=== PATIENT | female | born 1950 | race Caucasian/White ===

== ENCOUNTER 2020-11-16 11:38 | Emergency (ER) | payer OTHER, SELFPAY ==
[2020-11-16 12:12] VITALS: BP 139/69; PULSE 101; RESP 20; TEMP 37.4; O2SAT 98; BMI 27.1
--- NOTE | 2020-11-16 14:24 | CTR_ITS ---
PROCEDURE INFORMATION: Exam: CT Abdomen And Pelvis Without Contrast Exam date and time: 11/16/2020 3:02 PM Age: 70 years old Clinical indication: Abdominal pain; Left; Prior surgery; Surgery date: 6+ months; Surgery type: Prolapse; Patient HX: PT states known b stones mow w increasing L flank/groin pain; Additional info: Flank pain TECHNIQUE: Imaging protocol: Computed tomography of the abdomen and pelvis without contrast. Radiation optimization: All CT scans at this facility use at least one of these dose optimization techniques: automated exposure control; mA and/or kV adjustment per patient size (includes targeted exams where dose is matched to clinical indication); or iterative reconstruction. COMPARISON: No relevant prior studies available. RADIATION DOSE METRICS: Total DLP (mGy-cm): 909.69 FINDINGS: Lungs: There is subpleural atelectasis of the dependent portions of the lungs. Mediastinal space: A small hiatal hernia is present. Liver: There is a diffuse decrease in hepatic parenchymal density, consistent with fatty infiltration. Gallbladder and bile ducts: Normal. No calcified stones. No ductal dilation. Pancreas: Normal. No ductal dilation. Spleen: Normal. No splenomegaly. Adrenal glands: The adrenal glands are normal. Kidneys and ureters: There is severe left hydronephrosis and left perinephric fat stranding with a 7 mm calculus at the left ureteral vesical junction. The right kidney is normal. There is punctate left nephrolithiasis. Stomach and bowel: There is no evidence of intestinal perforation or obstruction. There is mildly excessive colonic stool content. Appendix: The appendix is not definitively identified. However, there is no CT evidence of a right lower quadrant inflammatory process. Intraperitoneal space: Unremarkable. No free air. No significant fluid collection. Vasculature: There are numerous benign phleboliths in the pelvis. The aorta demonstrates mild atherosclerotic calcification. Lymph nodes: Unremarkable.No enlarged lymph nodes. Urinary bladder: There is nonspecific bladder wall thickening. This may be related to incomplete distention. Reproductive: Unremarkable as visualized. Bones/joints: There is bilateral spondylolysis of L5 with grade 1 spondylolisthesis of L5 on S1. No central canal stenosis due to a large spinal canal but there is moderate bilateral foraminal narrowing at this level due to bony vertebral endplate and facet joint proliferative changes. No acute bony abnormality. 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 The right sacroiliac joint has an appropriate appearance. There is an incidental probable enchondroma in the right femoral head neck junction. Soft tissues: There is a fat-containing umbilical hernia. Other findings: There is mild levoscoliosis. CT/CT kidney stone [id number] IMPRESSION: 1. There is severe left hydronephrosis and left perinephric fat stranding with a 7 mm calculus at the left ureteral vesical junction. 2. There is bilateral spondylolysis of L5 with grade 1 spondylolisthesis of L5 on S1. No central canal stenosis due to a large spinal canal but there is moderate bilateral foraminal narrowing at this level due to bony vertebral endplate and facet joint proliferative changes. 3. There is unilateral left sacroiliitis with near complete ankylosis of the left sacroiliac joint. Radiation Dose CTDIVOL = (mGy): DLP = 909.69 (mGy-cm)
--- NOTE | 2020-11-16 14:24 | XRR_ITS ---
PROCEDURE INFORMATION: Exam: XR Chest Exam date and time: 11/16/2020 2:25 PM Age: 70 years old Clinical indication: Cough and dyspnea; Additional info: Dyspnea/cough TECHNIQUE: Imaging protocol: XR of the chest Views: 1 view. COMPARISON: No relevant prior studies available. FINDINGS: Lungs: The lungs are hyperinflated. There is left basilar atelectasis versus scarring. The right lung is clear. Pulmonary vascularity is within normal limits. No consolidation. Pleural spaces: Unremarkable. No pleural effusion. No pneumothorax. Heart/Mediastinum: Unremarkable. No cardiomegaly. Bones/joints: No acute abnormality. XR/XR chest 1V portable [id number] IMPRESSION: No acute findings.
--- NOTE | 2020-11-16 14:39 | ED_ITS ---
HPI - Female Genitourinary General: Chief complaint: Urogenital-Female Stated complaint: AB PAIN, POSS KIDNEY STONES, CHILLS Time Seen by Provider: 11/16/20 14:19 History of Present Illness: HPI Narrative: 70-year-old female with a history of renal stones presents with complaints of abdominal pain and flank pain. Patient states she was seen recently by her primary care doctor and told she had renal stones she is now complaining of pelvic and low back pain as well as some dysuria. She has a fever on arrival here no vomiting or diarrhea she is mildly tachycardic denies chest pain or shortness of breath. MD elicited complaint: dysuria and difficulty urinating Pertinent past history: other (Nephrolithiasis) Onset (ago): hour(s) Location of symptoms: suprapubic Severity: moderate Quality of pain: cramping Consistency: intermittent Vaginal discharge: none Vaginal bleeding: none Urinary symptoms: Difficulty Urinating and Dysuria Exacerbating factors: none Relieving factors: none Associated symptoms: Reports fevers/chills and nausea; Deny abdominal pain, short of breath, headache(s), rash, seizures, syncope, vaginal bleeding, vaginal discharge or weakness Treatment prior to arrival: none Review of Systems Const: Denies: fever(s), chills, body aches, change in appetite, fatigue or malaise ENMT: Denies: throat pain, ear or mastoid pain, nasal discharge or nasal congestion Card: Denies: syncope Resp: Denies: dyspnea, productive cough or non-productive cough GI: Reports: nausea; Denies: abdominal pain : Denies: vaginal discharge Skin/Breast: Denies: rash or pruritus Neuro: Denies: headache(s) Physical Exam Const: COMMON NORMALS: no acute distress GENERAL APPEARANCE: cooperative and comfortable ORIENTATION/CONSCIOUSNESS: Yes awake, Yes oriented to person, Yes oriented to place and Yes oriented to time HENMT: COMMON NORMALS: normocephalic, atraumatic and hearing grossly normal bilaterally HEAD & SCALP: normocephalic and atraumatic Neck/C-Spine: COMMON NORMALS: no JVD Resp: COMMON NORMALS: normal respiratory effort, No retractions, No use of accessory muscles and clear to auscultation bilaterally AUSCULTATION: clear to auscultation bilaterally Cardio: COMMON NORMALS: no JVD, regular rate, regular rhythm and No murmurs present (Cardio) RATE: regular rate RHYTHM: regular rhythm GI: COMMON NORMALS: Soft to palpation and No hepatosplenomegaly present AUSCULTATION: Yes normoactive bowel sounds PALPATION: Yes Soft to palpation, No Tenderness to palpation present (GI), No Guarding due to palpation present (GI) and Yes No hepatosplenomegaly present : SPECULUM EXAM - VAGINA: No vaginal bleeding OB/EXTERNAL & SPECULUM: No vaginal bleeding Extremity: COMMON NORMALS: normal to inspection, capillary refill normal, no clubbing, cyanosis or edema, no calf tenderness and no pedal edema Neuro: SENSORIUM/ORIENTATION: Yes oriented to person, Yes oriented to place and Yes oriented to time Skin: COMMON NORMALS: no rashes or lesions noted GENERAL SKIN EXAM: no rashes or lesions noted Course Vital Signs: Vital signs: Vital Signs Temperature 100.3 F H 11/16/20 18:37 Pulse Rate 105 H 11/16/20 18:37 Respiratory Rate 20 H 11/16/20 18:37 Blood Pressure 139/100 11/16/20 18:37 Pulse Oximetry 98 11/16/20 18:37 MDM - Female MDM Narrative: Medical decision making narrative: Patient has obstructive pyelonephritis has been cultured started on Rocephin will transfer to [facility] in [place] we do not have urology services available here this weekend. Patient accepted at [facility] will transfer. Lab Data: Labs: Lab Results 11/16/20 11/16/20 11/16/20 Range/Units 13:11 14:30 14:30 WBC 8.9 (4.0-10.0) 10^3/ uL RBC 4.62 (4.1-5.3) 10^6/u L Hgb 13.7 (11.5-15.3) g/dL Hct 42.7 (37.0-47.0) % MCV 92.4 (81-99) fL MCH 29.7 (28.0-34.0) pg MCHC 32.1 (30.0-36.0) g/dL RDW 13.4 (12.1-15.1) % Plt Count 233 (130-400) 10^3/c mm MPV 10.6 H (7.4-10.4) fL Neut % (Auto) 86.3 % Lymph % (Auto) 7.1 % Shackelford % (Auto) 6.0 % Eos % (Auto) 0.1 % Baso % (Auto) 0.3 % Neut # (Auto) 7.65 (1.8-7.7) 10^3/u L Lymph # (Auto) 0.6 L (0.8-4.8) 10^3/u L Shackelford # (Auto) 0.5 (0.2-0.9) 10^3/u L Eos # (Auto) 0.0 (0.0-0.8) 10^3/u L Baso # (Auto) 0.0 (0.0-0.1) 10^3/u L Nucleated RBC % (a uto) 0 % Nucleated RBCs # 0.0 /100WBC Sodium (136-145) mmol/L Potassium (3.5-5.1) mmol/L Chloride (98-107) mmol/L Carbon Dioxide (22-29) mmol/L Anion Gap (5-19) BUN (8-23) mg/dL Creatinine (0.5-0.9) mg/dL GFR Calculation (90-130) mL/min Glucose (65-115) mg/dL Calculated Osmolal ity (285-295) mOsm/k g Lactic Acid 1.8 (0.5-2.2) mmol/L Calcium (8.5-10.5) mg/dL Total Bilirubin (0.15-1.2) mg/dL AST (0-32) U/L ALT (0-33) U/L Alkaline Phosphata se (35-105) IU/L Total Protein (6.6-8.7) g/dL Albumin (3.5-5.2) g/dL Globulin (1.3-4.6) g/dL Urine Color Yellow (Yellow) Urine Appearance Cloudy (CLEAR) Urine pH 6 (5-7) Ur Specific Gravit y 1.015 (1.005-1.030) Urine Protein 1+ H (Negative) Urine Glucose (UA) Norm (Normal) Urine Ketones Negative (Negative) Urine Blood 2+ H (Negative) Urine Nitrate Negative (Negative) Urine Bilirubin Neg (Negative) Urine Urobilinogen Norm (Negative) mg/dL Ur Leukocyte Tamia ase 2+ H (Negative) Urine RBC 15-25 H (0-2) /hpf Urine WBC 40-55 H (0-5) /hpf Ur Squamous Epith Cells 0-4 H (0-5) /hpf Amorphous Sediment Not Reportable Urine Bacteria 4+ H (NONE) /hpf Urine Mucus 1+ /hpf 11/16/20 Range/Units 14:30 WBC (4.0-10.0) 10^3/ uL RBC (4.1-5.3) 10^6/u L Hgb (11.5-15.3) g/dL Hct (37.0-47.0) % MCV (81-99) fL MCH (28.0-34.0) pg MCHC (30.0-36.0) g/dL RDW (12.1-15.1) % Plt Count (130-400) 10^3/c mm MPV (7.4-10.4) fL Neut % (Auto) % Lymph % (Auto) % Shackelford % (Auto) % Eos % (Auto) % Baso % (Auto) % Neut # (Auto) (1.8-7.7) 10^3/u L Lymph # (Auto) (0.8-4.8) 10^3/u L Shackelford # (Auto) (0.2-0.9) 10^3/u L Eos # (Auto) (0.0-0.8) 10^3/u L Baso # (Auto) (0.0-0.1) 10^3/u L Nucleated RBC % (a uto) % Nucleated RBCs # /100WBC Sodium 138 (136-145) mmol/L Potassium 4.3 (3.5-5.1) mmol/L Chloride 101 (98-107) mmol/L Carbon Dioxide 23 (22-29) mmol/L Anion Gap 18.3 (5-19) BUN 13 (8-23) mg/dL Creatinine 0.7 (0.5-0.9) mg/dL GFR Calculation 83.2 L (90-130) mL/min Glucose 127 H (65-115) mg/dL Calculated Osmolal ity 288 (285-295) mOsm/k g Lactic Acid (0.5-2.2) mmol/L Calcium 9.6 (8.5-10.5) mg/dL Total Bilirubin 0.8 (0.15-1.2) mg/dL AST 17 (0-32) U/L ALT 20 (0-33) U/L Alkaline Phosphata se 111 H (35-105) IU/L Total Protein 7.7 (6.6-8.7) g/dL Albumin 4.4 (3.5-5.2) g/dL Globulin 3.3 (1.3-4.6) g/dL Urine Color (Yellow) Urine Appearance (CLEAR) Urine pH (5-7) Ur Specific Gravit y (1.005-1.030) Urine Protein (Negative) Urine Glucose (UA) (Normal) Urine Ketones (Negative) Urine Blood (Negative) Urine Nitrate (Negative) Urine Bilirubin (Negative) Urine Urobilinogen (Negative) mg/dL Ur Leukocyte Tamia ase (Negative) Urine RBC (0-2) /hpf Urine WBC (0-5) /hpf Ur Squamous Epith Cells (0-5) /hpf Amorphous Sediment Urine Bacteria (NONE) /hpf Urine Mucus /hpf Discharge Plan Discharge Patient Disposition: Xfer Short-Term Hosp Clinical Impression: Obstructive pyelonephritis, Nephrolithiasis Condition: Stable Referrals: Eedr Lees [Primary Care Provider] - Coding Level of Care Code ED Demand Generation Manager for Chg Fwd Exam Comprehensive
[2020-11-16 14:52] LABS: Basophils % 0.3 %; Eosinophils % 0.1 %; Hematocrit 42.7 % (37.0-47.0); Hemoglobin 13.7 g/dL (11.5-15.3); Lymphocytes # 0.6 10^3/uL (0.8-4.8); Lymphocytes % 7.1 %; Mean Corpuscular HGB Conc 32.1 g/dL (30.0-36.0); Mean Corpuscular Hemoglobin 29.7 pg (28.0-34.0); Mean Corpuscular Volume 92.4 fL (81-99); Mean Platelet Volume 10.6 fL (7.4-10.4); Monocytes # 0.5 10^3/uL (0.2-0.9); Neutrophils # 7.65 10^3/uL (1.8-7.7); Neutrophils % 86.3 %; Nucleated Red Blood Cells % 0 %; Platelet Count 233 10^3/cmm (130-400); Red Blood Count 4.62 10^6/uL (4.1-5.3); Red Cell Distribution Width 13.4 % (12.1-15.1); White Blood Count 8.9 10^3/uL (4.0-10.0)
[2020-11-16 15:13] LABS: Alanine Aminotransferase 20 U/L (0-33); Albumin Level 4.4 g/dL (3.5-5.2); Alkaline Phosphatase 111 IU/L (35-105); Anion Gap 18.3 (5-19); Aspartate Amino Transferase 17 U/L (0-32); Blood Urea Nitrogen 13 mg/dL (8-23); Calcium 9.6 mg/dL (8.5-10.5); Carbon Dioxide 23 mmol/L (22-29); Chloride 101 mmol/L (98-107); Creatinine Clr Calc Pharmacy 65.3302; Globulin 3.3 g/dL (1.3-4.6); Glomerular Filtration Rate 83.2 mL/min (90-130); Glucose 127 mg/dL (65-115); Lactic Sepsis W/Reflex 1.8 mmol/L (0.5-2.2); Osmolality Calculated 288 mOsm/kg (285-295); Potassium 4.3 mmol/L (3.5-5.1); Sodium 138 mmol/L (136-145); Total Bilirubin 0.8 mg/dL (0.15-1.2); Total Protein 7.7 g/dL (6.6-8.7)
[2020-11-16 15:58] LABS: Bilirubin Urine Neg (Negative); Blood Urine 2+ (Negative); Glucose Urine UA Norm (Normal); Ketones Urine Negative (Negative); Leukocyte Esterase Urine 2+ (Negative); Nitrate Urine Negative (Negative); Protein Urine 1+ (Negative); Specific Gravity, Urine 1.015 (1.005-1.030); Urine Appearance Cloudy (CLEAR); Urine Color Yellow (Yellow); Urobilinogen Urine Norm (Negative); pH Urine 6 (5-7)
[2020-11-16 16:00] LABS: Add Urine Culture? Yes; Bacteria Urine 4+ /hpf; Mucus Urine 1+ /hpf; RBC Urine 15-25 /hpf (0-2); Squamous Epithelial Cell Urine 0-4 /hpf (0-5); WBC Urine 40-55 /hpf (0-5)
[2020-11-16 16:09] VITALS: BP 135/80; PULSE 113; RESP 20; O2SAT 92
[2020-11-16] MEDS: cefTRIAXone 2,000 MG in sodium chloride 0.9% (plus) 50 ML 100 MG IV (16:24)
[2020-11-16 16:26] VITALS: RESP 18
[2020-11-16] MEDS: ondansetron 2 mg/ML SDV 2 mL 4 MG IVP (16:26)
[2020-11-16] MEDS: morphine 4 mg/mL SDV 1 mL 6 MG IVP ×2 (16:26→18:07)
[2020-11-16 18:07] VITALS: RESP 20
[2020-11-16 18:37] VITALS: BP 139/100; PULSE 105; RESP 20; TEMP 37.9; O2SAT 98
== END 2020-11-16 19:19 | disposition short-term general hospital (02) ==
PROVIDERS: Physician Assistant; Emergency Provider Family Medicine; PCP Physician Assistant Medical
DX: N20.0 Calculus of kidney (principal)
CPT/HCPCS: 36415; 71045; 74176; 80053; 81001; 83605; 85025; 87040; 87077; 87086; 87186; 96365; 96375; 96376; 99285; J0696; J2270; J2405

== ENCOUNTER → 2021-11-24 14:19 | Outpatient (BNVA) | payer OTHER, SELFPAY | PROVIDERS: PCP Physician Assistant Medical; Referring Provider Family Medicine; Visit Provider Podiatrist Foot & Ankle Surgery | DX: M79.671 Pain in right foot (principal); M79.672 Pain in left foot; M21.611 Bunion of right foot; M21.612 Bunion of left foot; M20.41 Other hammer toe(s) (acquired), right foot; M20.42 Other hammer toe(s) (acquired), left foot | CPT/HCPCS: 73630 ==

== ENCOUNTER 2022-03-20 10:05 | Outpatient (CLI) | payer MEDICARE, SELFPAY ==
--- NOTE | 2022-03-20 10:14 | MM_ITS ---
WS: [id number] SCREENING DIGITAL BREAST TOMOSYNTHESIS MAMMOGRAM WITH CAD HISTORY: SCREENING COMPARISON: 04/16/2020 Bilateral CC and MLO with tomosynthesis views submitted. Synthetic mammography reviewed. Computer aid ed detection analyzed. Breast composition: There are scattered areas of fibroglandular density. No suspicious masses, microc alcifications or architectural distortion. Parenchymal pattern is similar to the prior study from 03/24. No suspicious mass or calcification. MM/[place] [id number] IMPRESSION: BI-RADS: 2-Benign FOLLOW UP: 1 Year Follow-up
== END 2022-03-20 10:06 | disposition home or self-care (01) ==
LOC: RAD 10:06
PROVIDERS: PCP Family Medicine; Visit Provider Nurse Practitioner Family
DX: Z12.31 Encounter for screening mammogram for malignant neoplasm of breast (principal)
CPT/HCPCS: 77063; 77067

== ENCOUNTER → 2022-04-06 10:35 | Outpatient (BNVA) | payer MEDICARE, SELFPAY | PROVIDERS: PCP Family Medicine; Visit Provider Podiatrist Foot & Ankle Surgery | DX: M21.611 Bunion of right foot (principal); M21.612 Bunion of left foot; M20.41 Other hammer toe(s) (acquired), right foot; M20.42 Other hammer toe(s) (acquired), left foot | CPT/HCPCS: 99214 ==

== ENCOUNTER 2022-04-10 05:47 | Day surgery (SDC) | payer MEDICARE, SELFPAY ==
[2022-04-09 09:35] VITALS: BMI 26.6
[2022-04-10] VITALS (9 sets, daily range): BP systolic 117–155; BP diastolic 65–83; PULSE 68–80; RESP 12–18; TEMP 36.1–36.6; O2SAT 93–98
--- NOTE | 2022-04-10 06:07 | W.PM.OPSUD ---
Surgery/Procedure H&P Update DATE OF PROCEDURE: April 10, 2022 DATE H&P PERFORMED: 04/06/22 CHANGES TO PREVIOUS DOCUMENTATION: None PREOP DIAGNOSIS: Left bunion PRIMARY INDICATION FOR PROCEDURE: Left bunion pain PLANNED PROCEDURE: Operation Date: 04/10/22 07:00 Proposed Procedures p Left Bunionectomy 57472,M21.612(Not Applicable) - Angel Mireles DPM
--- NOTE | 2022-04-10 06:08 | P.OP_ITS ---
Operative Report Date of procedure: April 10, 2022 Pre-op diagnosis: Bunion, left foot Post-op diagnosis: Same Procedure done: Bunionectomy with double osteotomy left foot. CPT code 77633 Implants: Cardwell 28 3 mm screw and 10 mm staple, 3-0 Vicryl, 4-0 Vicryl, 4-0 nylon Surgeon: Angel Mireles D.P.M. Mechanical Developer Prover: Leia Brand Estimated blood loss: 5 38 Complications: None Brief History: Patient examined and evaluated, findings and treatment options were discussed with patient at length.? She has a nontrack bound bunion deformity that is painful left greater than right would like to discuss surgical invention.? Has failed conservative measures consisting of taping, strapping, padding, wider shoes, active medications, stretching and anti-inflammatories.? Left foot but it continues to cause pain on a regular basis with everyday activities would like to have this scheduled for surgical intervention.? Recommended bunionectomy with distal osteotomy with long-arm Bandar.? Can be done outpatient under MAC anesthesia.? Risks include but are not limited to pain, bleeding, numbness, infection, hardware failure, delayed union, malunion, nonunion, failure to alleviate pain.? Chronic swelling, chronic numbness, paresthesias, surgical site dehiscence, hallux varus.? Under correction of deformity, overcorrection for me, altered mechanics and need for further surgical intervention.? Also risk for deep vein thrombosis, heart attack, stroke and . No guarantees written, expressed or implied. Patient wishes to proceed. Procedure: Attention was directed to the dorsal medial aspect of the left first metatarsal phalangeal joint where a linear longitudinal incision was made through skin with a #15 blade with dissection carried down through subcutaneous tissue to the layer joint capsule and periosteum utilizing a combination of blunt and sharp technique.? Care was taken to retract and preserve neurovascular and tendinous structures.? All bleeders were ligated and cauterized as necessary.? A linear capsulotomy was performed and the medial eminence of the first metatarsal head was transected with a sagittal saw and passed from operative field.? Next utilizing a sagittal saw a chevron osteotomy was performed apex oriented distally with the head of the first metatarsal left foot translated laterally into a more anatomically corrected position followed by fixation utilizing standard AO technique, osteotomy was fixated utilizing a Cardwell 28 cannulated screw 16 mm x 3 mm in diameter and partially threaded.? Medial shelf was transected, passed from operative field and all rough edges smoothed.? Attention was then directed to the medial aspect of the proximal phalanx where a Juan Pablo osteotomy was performed maintaining a lateral cortical hinge followed by fixation with a Cardwell 28 10mm x 10mm step-off nitinol staple with excellent bony apposition and compression noted without violating the first metatarsal phalangeal joint confirmed with direct visualization as well as intraoperative fluoroscopy in all 3 standard views.? Incision was then flushed with copious amounts of sterile skin solution.? Smooth range of motion of the first metatarsal plantar joint appreciated as well as reduction of the bunion deformity and a more rectus medial column was appreciated.? Capsule closed with 3-0 Vicryl, subcutaneous tissue with 4-0 Vicryl and skin with 4-0 nylon.? Exparel was infiltrated in a grid like fashion a total of 10 cc expanded with 10 cc of saline.? Dressings consisting of Adaptic, sterile 4 x 4's, Kerlix and Juventino wrap were applied and tourniquet was deflated.? Postop shoe and cam boot sent with the patient for protected weightbearing.? She was sent home with a cam boot with vital signs stable and vascular status intact.? Prescribed hydrocodone 5/325 mg to take every 4-6 hours as needed for pain.? Advised 81 mg aspirin once daily for the next 6 weeks to potentially reduce the risk of deep vein thrombosis.? Was given my cell phone number to contact with any postoperative questions or concerns.
--- NOTE | 2022-04-10 06:12 | XR_ITS ---
WS: [id number] Left foot, 3 views, 04/10/2022 Clinical Data: Postop bunionectomy Comparison: Bilateral feet, 11/24/2021. Findings: There is a distal first metatarsal osteotomy fixed with an orthopedic screw. There is an osteotomy of the base of the left first toe proximal phalanx with a medial plate and 2 screws reducing the site. XR/XR foot LT min 3V* [id number] Impression: Distal left first metatarsal osteotomy and left first toe osteotomy of the prox imal phalanx.
[2022-04-10] MEDS: gabapentin 300 mg Capsule PO (06:33)
[2022-04-10] MEDS: CELEcoxib 200 mg Capsule 400 MG PO (06:33)
[2022-04-10] MEDS: sodium chloride 0.9% 1,000 ML 30 ML IV (06:36)
[2022-04-10] MEDS: ceFAZolin 2,000 MG in sodium chloride 0.9% (plus) 50 ML 100 MG IV (07:00)
--- NOTE | 2022-04-10 07:23 | ANES.PREANE2 ---
Pre-Anesthetic Assessment Height/Weight: Height 1.63 m Weight 70.307 kg Temp Pulse Resp BP Pulse Ox O2 Del Method 97.8 F 71 18 155/83 98 04/10/22 06:17 04/10/22 06:17 04/10/22 06:17 04/10/22 06:17 04/10/22 06:17 04/10/22 06:17 Preop Diagnosis: Left bunion Operation Date: 04/10/22 07:00 Proposed Procedures p Left Bunionectomy 92680,M21.612(Not Applicable) - Angel Mireles DPM Familial anesthetic complications: None Was Beta Jessica taken within 24 hours: N/A Was Clonidine taken within 24 hours: N/A Last intake: Intake Last Liquid Date 04/09/22 Last Liquid Time 21:30 Last Solid Date 04/09/22 Last Solid Time 19:30 Social No alcohol and No tobacco Exam alert, oriented x 3, clear to auscultation bilaterally and regular rate & rhythm Airway Submandibular: within normal limits Cervical ROM: within normal limits Mallampati: Class II Dentition: full GI Gastroesophageal Reflux Disease Anesthetic Plan ASA status: 2 Anesthesia: MAC Medications/Allergies Home Medications Medication Instructions Recorded Confirmed Last Taken Type acetaminophen 500 mg tablet 500 - 1,000 mg PO PRN PRN Pain 11/16/20 04/10/22 04/09/22 History (Tylenol Extra Strength) calcium 1 - 2 tab PO DAILY 11/16/20 04/09/22 Unknown History cholecalciferol (vitamin D3) 125 125 mcg PO DIRECTED 11/16/20 04/10/22 04/09/22 History mcg (5,000 unit) tablet (Vitamin D3) estradiol 1 g vaginal .THREE TIMES A WEEK 11/16/20 04/09/22 Unknown History PRN dryness ibuprofen 200 mg tablet 200 mg PO PRN PRN Pain 11/16/20 04/10/22 04/09/22 History biotin 10,000 mcg capsule 10,000 mcg PO DAILY 04/09/22 04/10/22 04/09/22 History esomeprazole magnesium 20 mg 20 mg PO DAILY PRN Heartburn 04/09/22 04/10/22 04/09/22 History capsule,delayed release (Nexium) losartan 25 mg tablet 25 mg PO DAILY 04/09/22 04/10/22 04/09/22 History hydrocodone 10 mg-acetaminophen 1 tab PO Q6H 7 days #20 tabs 04/10/22 Unknown Rx 325 mg tablet Allergies Allergy/AdvReac Type Severity Reaction Status Date / Time No Known Allergies Allergy Verified 04/09/22 09:31 Current Medications Generic Name Dose Route Start Last Admin Trade Name Freq PRN Reason Stop Dose Admin Sodium Chloride 1,000 mls @ 30 mls/hr 04/10/22 06:00 04/10/22 06:36 Sodium Chloride 0.9% IV 04/11/22 05:59 30 mls/hr .Q24H KERRY Administration PFSH Anesthesia Social History Smoking and tobacco status: never smoked Second hand smoke exposure: No Smoking risk assessment/counseling performed?: No Alcohol intake: current Alcohol intake frequency: holidays/special occasions only Alcohol type: other Desire information about alcohol rehabilitation?: No Desire information about substance/drug rehabilitation?: No Counseling given: No Data Anesthesia Cardiac Studies: No Data to Display
--- NOTE | 2022-04-10 14:56 | ANE.PACU2 ---
Inpatient post-anesthesia follow up: Airway intact: Yes Vital signs: Temperature 97.4 F Pulse Rate 68 Respiratory Rate 18 Blood Pressure 141/73 Pulse Oximetry 97 Oxygen Delivery Me thod Room Air Oxygen Flow Rate Fraction of Inspir ed Oxygen Hydration adequate: Yes Nausea and vomiting: No Pain level: 2 Mental status: Baseline
== END 2022-04-10 09:13 | disposition home or self-care (01) ==
PROVIDERS: PCP Family Medicine; Visit Provider Podiatrist Foot & Ankle Surgery
PROC: (CPT 28296; principal; 2022-04-10 07:00)
DX: M21.612 Bunion of left foot (principal); K21.9 Gastro-esophageal reflux disease without esophagitis
CPT/HCPCS: 28299; 73630; C1713; C9290; J2370; J2405; J2704; J3010; J3490; J7030

== ENCOUNTER → 2022-04-23 13:32 | Outpatient (BNVA) | payer MEDICARE, SELFPAY | PROVIDERS: PCP Family Medicine; Visit Provider Podiatrist Foot & Ankle Surgery | DX: Z98.890 Other specified postprocedural states (principal); M21.611 Bunion of right foot; M21.612 Bunion of left foot | CPT/HCPCS: 73630; 99024 ==

== ENCOUNTER 2022-04-23 14:55 | Outpatient (CLI) | payer MEDICARE, SELFPAY | END 2022-04-23 14:56 | disposition home or self-care (01) | LOC: SPT 14:55 | PROVIDERS: PCP Family Medicine; Visit Provider Podiatrist Foot & Ankle Surgery | DX: Z47.89 Encounter for other orthopedic aftercare (principal); M21.612 Bunion of left foot | CPT/HCPCS: 97760; 99024; L3100 ==

== ENCOUNTER → 2022-05-07 13:33 | Outpatient (BNVA) | payer MEDICARE, SELFPAY | PROVIDERS: PCP Family Medicine; Visit Provider Podiatrist Foot & Ankle Surgery | DX: Z98.890 Other specified postprocedural states (principal); M21.611 Bunion of right foot; M21.612 Bunion of left foot | CPT/HCPCS: 73630; 99024 ==

== ENCOUNTER → 2022-05-21 13:26 | Outpatient (BNVA) | payer MEDICARE, SELFPAY | PROVIDERS: PCP Family Medicine; Visit Provider Podiatrist Foot & Ankle Surgery | DX: M21.611 Bunion of right foot (principal); M21.612 Bunion of left foot; Z98.890 Other specified postprocedural states | CPT/HCPCS: 73630; 99024 ==

== ENCOUNTER → 2022-06-25 13:28 | Outpatient (BNVA) | payer MEDICARE, SELFPAY | PROVIDERS: PCP Family Medicine; Visit Provider Podiatrist Foot & Ankle Surgery | DX: Z98.890 Other specified postprocedural states (principal); M21.611 Bunion of right foot; M21.612 Bunion of left foot | CPT/HCPCS: 73630; 99024 ==

== ENCOUNTER 2022-08-28 05:56 | Day surgery (SDC) | payer MEDICARE, SELFPAY ==
[2022-08-27 12:17] VITALS: BMI 26.9
[2022-08-28] VITALS (9 sets, daily range): BP systolic 112–157; BP diastolic 69–89; PULSE 68–90; RESP 14–18; TEMP 36.2–36.5; O2SAT 93–97
--- NOTE | 2022-08-28 06:15 | P.HP_ITS ---
Providers/Chief Complaint Primary Care Provider: Mynor Beltran Chief Complaint: RIGHT LAKISHA BUNIONECTOMY AND BRITTANY OSTEOTOMY [id number] History of Present Illness Josie Hughes is a 72 year old female presenting to the clinic for a pre op ap pointment to go over recovery time & risk on a right hallux bunionectomy. Patient is scheduled for surgery tomorrow August 27.? She complains of right bunion pain has been progressive over the course of years and is no longer alleviated by conservative measures consisting of wide accommodative shoes, anti-inflammatories, activity modifications and stretching. Patient denies any subjective nausea, vomiting, fever, chills, shortness of breath or chest pain. Review of Systems General: Reports: 10 or more systems reviewed and unremarkable except in HPI and below Const: Denies: fever(s) or chills Eyes: Denies: change in vision Card: Denies: chest pain or palpitations Resp: Denies: dyspnea or productive cough GI: Denies: abdominal pain, nausea or vomiting : Denies: flank pain Musc: Reports: extremity pain, joint pain, joint stiffness, limited range of motion and deformity Skin/Breast: Reports: skin tenderness; Denies: rash Neuro: Reports: difficulty walking; Denies: numbness in extremities, sensory changes or frequent falls Psych: Denies: suicidal ideation Derrick/Lymph: Denies: easy bruising Medications/Allergies Home Medications Medication Instructions Recorded Confirmed Last Taken Type calcium 1 - 2 tab PO DAILY 11/16/20 08/27/22 08/27/22 History cholecalciferol (vitamin D3) 125 125 mcg PO DIRECTED 11/16/20 08/27/22 08/27/22 History mcg (5,000 unit) tablet (Vitamin D3) estradiol 0.01% (0.1 mg/gram) 1 g vaginal .THREE TIMES A WEEK 11/16/20 08/27/22 Unknown History vaginal cream PRN dryness ibuprofen 200 mg tablet 200 mg PO PRN PRN Pain 11/16/20 08/27/22 04/09/22 History biotin 10,000 mcg capsule 10,000 mcg PO DAILY 04/09/22 08/27/22 08/27/22 History esomeprazole magnesium 20 mg 20 mg PO DAILY PRN Heartburn 04/09/22 08/27/22 04/09/22 History capsule,delayed release (Nexium) losartan 25 mg tablet 25 mg PO DAILY 04/09/22 08/27/22 08/27/22 History Toe Splint to the Left #1 ea 04/23/22 06/25/22 Unknown Rx hydrocodone 10 mg-acetaminophen 1 tab PO Q6H PRN pain 7 days #20 08/28/22 Unknown Rx 325 mg tablet tabs Allergies Allergy/AdvReac Type Severity Reaction Status Date / Time No Known Allergies Allergy Verified 06/25/22 13:29 PFSH PFSH: Surgical History H/O: hysterectomy History of bladder surgery Social History Smoking and tobacco status: never smoked Second hand smoke exposure: No Smoking risk assessment/counseling performed?: No Alcohol intake: current Alcohol intake frequency: holidays/special occasions o nly Alcohol type: other Desire information about alcohol rehabilitation?: No Desire information about substance/drug rehabilitation?: No Counseling given: No Vital Signs Vitals Signs: Last Vital Signs Temp 97.7 F 08/28/22 06:13 Pulse 90 08/28/22 06:13 Resp 18 08/28/22 06:13 BP 157/89 08/28/22 06:13 Pulse Ox 97 08/28/22 06:13 O2 Del Method 08/28/22 06:14 Weight: Weight last 48 hrs Weight 157 lb Physical Exam Narrative: EXAM NARRATIVE: GENERAL: Patient is alert and oriented ?3 and in no acute distress. The following is a focused left lower extremity exam. VASCULAR: Dorsalis pedis and posterior tibial arteries palpable +2. Capillary refill time less than 3 seconds to the distal hallux bilaterally. Calf is supple and nontender proximally and distally. Mild edema at the operative site consistent with postoperative course. NEUROLOGICAL: Protective sensation intact to light touch. DERMATOLOGICAL: Well-healed cicatrix to the left foot. No erythema, warmth, drainage or ecchymosis. MUSCULOSKELETAL: Pain to palpation right bunion deformity, most painful at the medial and dorsal aspect of the right first metatarsal phalangeal joint. Decreased dorsiflexion at the right first metatarsophalangeal joint at 45 degrees. Smooth range of motion at the left first metatarsal phalangeal joint with 55 degrees of dorsiflexion appreciated clinically, no crepitus. Muscle strength 5-5 in all 3 planes to the right and left foot and ankle. Pain to p alpation right bunion that is not track bound. CARDIOVASCULAR: S1, S2, normal rate, normal rhythm. Dorsalis pedis and posterior tibial arteries palpable. LUNGS: Clear to auscltation, no use of acessory muscles, no crackles or wheezes. A&P Assessment and plan (1) Right foot pain: (2) Bunion, right: Plan This is an established 72 YOF patient presenting to the clinic for a pre op appointment to go over recovery time & risk on a right hallux bunionectomy. Patient is scheduled for surgery tomorrow August 27.? She complains of right bunion pain has been progressive over the course of years and is no longer alleviated by conservative measures consisting of wide accommodative shoes, anti -inflammatories, activity modifications and stretching.? I reviewed at length with the patient, the risks, potential complications, benefits, alternatives, expectations, and typical outcomes associated with the surgery. The risks and potential complications were explained in detail, including but not limited to infection, wound dehiscence or soft tissue complications, bleeding and hematoma, chronic edema, neuritis or nerve damage producing numbness or chronic pain, CRPS, failure to relieve pain or worsening pain, thick / painful / unsightly scar, limited motion / stiffness, malposition, delayed union, malunion, or nonunion, fracture, reaction to implants, anesthetic complications, venous thromboembolism, and deformity recurrence.? I discussed the notion of no regrets with the patient as it pertains to complications and outcomes. The patient seemed to understand the nature of the proposed care and required convalescence. They asked appropriate questions, answered to their satisfaction. They are aware no guarantees can be made as to a satisfactory outcome and they understand there may be other possible unforeseen complications or outcomes not listed here that will be treated accordingly if they arise. There were no written or implied guarantees given to the patient. They gave informed consent to proceed. 08/28/2022, outpatient, Lakisha bunionectomy and Brittany osteotomy right foot.? Local, MAC versus general LMA per anesthesia preference, supine, gurney, TPS, mini C arm, [place].? 45 minutes Coding Level of Care Code Acute X Ray Service Technician for Chg Fwd Diagnoses Right foot pain M79.671 Bunion, right M21.989
--- NOTE | 2022-08-28 06:15 | W.PM.OPSUD ---
Surgery/Procedure H&P Update DATE OF PROCEDURE: August 28, 2022 DATE H&P PERFORMED: 08/28/22 CHANGES TO PREVIOUS DOCUMENTATION: None PREOP DIAGNOSIS: Right bunion PLANNED PROCEDURE: Operation Date: 08/28/22 07:00 Proposed Procedures p Bunionectomy [place] 15980/M21.611(Right) - Angel Mireles DPM s Juan Pablo Osteotomy(Right) - Angel Mireles DPM
--- NOTE | 2022-08-28 06:16 | XRR_ITS ---
PROCEDURE INFORMATION: Exam: XR Right Foot Exam date and time: 08/28/2022 6:24 AM Age: 72 years old Clinical indication: Pain; Foot; Right; Additional info: Shola quinteros TECHNIQUE: Imaging protocol: Radiologic exam of the Right foot. Views: 3 or more views. AP Oblique Lateral COMPARISON: No relevant prior studies available. FINDINGS: Bones/joints: There is moderate hallux valgus alignment abnormality with severe 1st metatarsophalangeal/sesamoid joint degenerative changes. Moderate toe interphalangeal joint space narrowing is also seen, suggestive of osteoarthritic change. The tarsometatarsal joints, mid tarsal and subtalar joints show mild degenerative changes. Small plantar calcaneal spur is seen. There is osteopenia. Soft tissues: Mild 1st metatarsophalangeal joint region soft tissue swelling. There are no radiopaque foreign bodies. Notes: If there is further concern, recommend follow-up radiographs or MRI for complete assessment. XR/XR foot RT min 3V* [id number] IMPRESSION: Moderate hallux valgus alignment abnormality with severe 1st metatarsophalangeal joint degenerative changes, as noted above.
[2022-08-28] MEDS: gabapentin 300 mg Capsule PO (06:25)
[2022-08-28] MEDS: sodium chloride 0.9% 1,000 ML 30 ML IV (06:25)
[2022-08-28] MEDS: CELEcoxib 200 mg Capsule 400 MG PO (06:25)
[2022-08-28] MEDS: ceFAZolin 2,000 MG in sodium chloride 0.9% (plus) 50 ML 100 MG IV (07:01)
--- NOTE | 2022-08-28 07:20 | ANES.PREANE2 ---
Pre-Anesthetic Assessment Height/Weight: Height 1.63 m Weight 71.214 kg Temp Pulse Resp BP Pulse Ox O2 Del Method 97.7 F 90 18 157/89 97 08/28/22 06:13 08/28/22 06:13 08/28/22 06:13 08/28/22 06:13 08/28/22 06:13 08/28/22 06:14 Preop Diagnosis: Right bunion Operation Date: 08/28/22 07:00 Proposed Procedures p Bunionectomy [place] [address]8023/M21.611(Right) - Angel Mireles DPM s Juan Pablo Osteotomy(Right) - Angel Mireles DPM Familial anesthetic complications: none Was Beta Jessica taken within 24 hours: N/A Was Clonidine taken within 24 hours: N/A Last intake: Intake Last Liquid Date 08/27/22 Last Liquid Time 22:30 Last Solid Date 08/27/22 Last Solid Time 18:30 Social No alcohol and No tobacco Exam alert, oriented x 3, clear to auscultation bilaterally and regular rate & rhythm Airway Submandibular: within normal limits Cervical ROM: within normal limits Mallampati: Class II Dentition: full CV/HEM Hypertension GI Gastroesophageal Reflux Disease Anesthetic Plan ASA status: 2 Anesthesia: MAC Medications/Allergies Home Medications Medication Instructions Recorded Confirmed Last Taken Type calcium 1 - 2 tab PO DAILY 11/16/20 08/27/22 08/27/22 History cholecalciferol (vitamin D3) 125 125 mcg PO DIRECTED 11/16/20 08/27/22 08/27/22 History mcg (5,000 unit) tablet (Vitamin D3) estradiol 0.01% (0.1 mg/gram) 1 g vaginal .THREE TIMES A WEEK 11/16/20 08/27/22 Unknown History vaginal cream PRN dryness ibuprofen 200 mg tablet 200 mg PO PRN PRN Pain 11/16/20 08/27/22 04/09/22 History biotin 10,000 mcg capsule 10,000 mcg PO DAILY 04/09/22 08/27/22 08/27/22 History esomeprazole magnesium 20 mg 20 mg PO DAILY PRN Heartburn 04/09/22 08/27/22 04/09/22 History capsule,delayed release (Nexium) losartan 25 mg tablet 25 mg PO DAILY 04/09/22 08/27/22 08/27/22 History Toe Splint to the Left #1 ea 04/23/22 06/25/22 Unknown Rx hydrocodone 10 mg-acetaminophen 1 tab PO Q6H PRN pain 7 days #20 08/28/22 Unknown Rx 325 mg tablet tabs Allergies Allergy/AdvReac Type Severity Reaction Status Date / Time No Known Allergies Allergy Verified 06/25/22 13:29 Current Medications Generic Name Dose Route Start Last Admin Trade Name Freq PRN Reason Stop Dose Admin Sodium Chloride 1,000 mls @ 30 mls/hr 08/28/22 06:00 08/28/22 06:25 Sodium Chloride 0.9% IV 08/29/22 05:59 30 mls/hr .Q24H KERRY Administration PFSH Anesthesia Surgical History H/O: hysterectomy History of bladder surgery Social History Smoking and tobacco status: never smoked Second hand smoke exposure: No Smoking risk assessment/counseling performed?: No Alcohol intake: current Alcohol intake frequency: holidays/special occasions only Alcohol type: other Desire information about alcohol rehabilitation?: No Desire information about substance/drug rehabilitation?: No Counseling given: No Data Anesthesia Cardiac Studies: No Data to Display
--- NOTE | 2022-08-28 08:12 | XR_ITS ---
WS: [id number] Right foot, 3 views, 08/28/2022, 0839 hours Clinical Data: post op bunionectomy Comparison: Right foot, today, 0626 hours Findings: There is an osteotomy of the distal right first metatarsal with an oblique screw 89 in the reduction. There is partial medial resection of the distal right first metatarsal. There is an osteotomy of the right first toe proximal phalanx with a radiopaque staple. XR/XR foot RT min 3V* [id number] Impression: Postop bunionectomy of right first metatarsal and right first proximal phalanx.
--- NOTE | 2022-08-28 08:13 | P.OP_ITS ---
Operative Report Date of procedure: August 28, 2022 Pre-op diagnosis: Preop Diagnosis Right bunion Post-op diagnosis: Right bunion Procedure done: Right bunionectomy with double osteotomy. CPT code 77471 Implants: Thornton 3 mm headed partially-threaded screw. Thornton EZ clip nitinol staple 10 mm x 10 mm x 10 mm, 3-0 Vicryl, 4-0 Vicryl, 5-0 Monocryl Specimens removed/disposition: None Pathology: None Surgeon: Angel Mireles D.P.M. Steward/Stewardess Third Class: Becky Estimated blood loss: 5 39 IV fluids: 0 Urine output: 0 Complications: None Brief History: This is an established 72 YOF patient presenting to the clinic for a pre op appointment to go over recovery time & risk on a right hallux bunionectomy. Patient is scheduled for surgery tomorrow August 27.? She complains of right bunion pain has been progressive over the course of years and is no longer alleviated by conservative measures consisting of wide accommodative shoes, a nti-inflammatories, activity modifications and stretching.? I reviewed at length with the patient, the risks, potential complications, benefits, alternatives, expectations, and typical outcomes associated with the surgery. The risks and potential complications were explained in detail, including but not limited to infection, wound dehiscence or soft tissue complications, bleeding and hematoma, chronic edema, neuritis or nerve damage producing numbness or chronic pain, CRPS, failure to relieve pain or worsening pain, thick / painful / unsightly scar, limited motion / stiffness, malposition, delayed union, malunion, or nonunion, fracture, reaction to implants, anesthetic complications, venous thromboembolism, and deformity recurrence.? I discussed the notion of no regrets with the patient as it pertains to complications and outcomes. The patient seemed to understand the nature of the proposed care and required convalescence. They asked appropriate questions, answered to their satisfaction. They are aware no guarantees can be made as to a satisfactory outcome and they understand there may be other possible unforeseen complications or outcomes not listed here that will be treated accordingly if they arise. There were no written or implied guarantees given to the patient. They gave informed consent to proceed. Procedure: Attention was directed to the dorsal medial aspect of the right first metatarsal phalangeal joint where a linear longitudinal incision was made through skin with a #15 blade with dissection carried down through subcutaneous tissue to the layer joint capsule and periosteum utilizing a combination of blunt and sharp technique.? Care was taken to retract and preserve neurovascular and tendinous structures.? All bleeders were ligated and cauterized as necessary.? A linear capsulotomy was performed and the medial eminence of the first metatarsal head was transected with a sagittal saw and passed from operative field.? Next utilizing a sagittal saw a chevron osteotomy was performed apex oriented distally with the head of the first metatarsal right foot translated laterally into a more anatomically corrected position followed by fixation utilizing standard AO technique, osteotomy was fixated utilizing a Jdguanjia headed screw 3 mm in diameter and partially threaded.? Medial shelf was transected, passed from operative field and all rough edges smoothed.? Attention was then directed to the medial aspect of the proximal phalanx where a Juan Pablo osteotomy was performed maintaining a lateral cortical hinge followed by fixation with a Jdguanjia 10 mm x 10 mm x 10 mm nitinol staple with excellent bony apposition and compression noted without violating the first metatarsal phalangeal joint confirmed with direct visualization as well as intraoperative fluoroscopy in all 3 standard views.? Incision was then flushed with copious amounts of sterile skin solution.? Smooth range of motion of the first metatarsal plantar joint appreciated as well as reduction of the bunion deformity and a more rectus medial column was appreciated.? Capsule closed with 3-0 Vicryl, subcutaneous tissue with 4-0 Vicryl and skin with 4-0 nylon.? Exparel was infiltrated in a grid like fashion a total of 10 cc expanded with 10 cc of saline.? Dressings consisting of Adaptic, sterile 4 x 4's, Kerlix and Juventino wrap were applied and to urniquet was deflated.? Postop shoe and cam boot sent with the patient for protected weightbearing.? She was sent home with a cam boot with vital signs stable and vascular status intact.? Prescribed hydrocodone 5/325 mg to take every 4-6 hours as needed for pain.? Advised 81 mg aspirin once daily for the next 6 weeks to potentially reduce the risk of deep vein thrombosis.? Was given my cell phone number to contact with any postoperative questions or concerns.
--- NOTE | 2022-08-28 14:02 | ANE.PACU2 ---
Inpatient post-anesthesia follow up: Airway intact: Yes Vital signs: Temperature 97.6 F Pulse Rate 73 Respiratory Rate 18 Blood Pressure 124/88 Pulse Oximetry 94 Oxygen Delivery Me thod Room Air Oxygen Flow Rate Fraction of Inspir ed Oxygen Hydration adequate: Yes Nausea and vomiting: No Pain level: 2 Mental status: Baseline
== END 2022-08-28 09:25 | disposition home or self-care (01) ==
PROVIDERS: PCP Family Medicine; Visit Provider Podiatrist Foot & Ankle Surgery
PROC: (CPT 28296; principal; 2022-08-28 07:00)
PROC: (CPT 28298; 2022-08-28 07:00)
DX: M21.611 Bunion of right foot (principal); I10 Essential (primary) hypertension; K21.9 Gastro-esophageal reflux disease without esophagitis
CPT/HCPCS: 28299; 73630; 76000; C1713; C9290; J0690; J1100; J2250; J2405; J2704; J3010; J3490; J7030

== ENCOUNTER → 2022-09-10 13:17 | Outpatient (BNVA) | payer MEDICARE, SELFPAY | PROVIDERS: PCP Family Medicine; Visit Provider Podiatrist Foot & Ankle Surgery | DX: Z98.890 Other specified postprocedural states (principal); M21.611 Bunion of right foot; M21.612 Bunion of left foot | CPT/HCPCS: 73630 ==

== ENCOUNTER 2022-09-10 14:29 | Outpatient (CLI) | payer MEDICARE, SELFPAY | END 2022-09-10 14:30 | disposition home or self-care (01) | LOC: SPT 14:30 | PROVIDERS: PCP Family Medicine; Visit Provider Podiatrist Foot & Ankle Surgery | DX: Z47.89 Encounter for other orthopedic aftercare (principal) | CPT/HCPCS: 99024; L3100 ==

== ENCOUNTER → 2022-09-24 12:50 | Outpatient (BNVA) | payer MEDICARE, SELFPAY | PROVIDERS: PCP Family Medicine; Visit Provider Podiatrist Foot & Ankle Surgery | DX: Z98.890 Other specified postprocedural states (principal); M21.611 Bunion of right foot; M21.612 Bunion of left foot | CPT/HCPCS: 73630; 99024 ==

== ENCOUNTER → 2022-10-08 12:47 | Outpatient (BNVA) | payer MEDICARE, SELFPAY | PROVIDERS: PCP Family Medicine; Visit Provider Podiatrist Foot & Ankle Surgery | DX: Z98.890 Other specified postprocedural states (principal); M21.611 Bunion of right foot; M21.612 Bunion of left foot | CPT/HCPCS: 73630; 99024 ==

== ENCOUNTER → 2022-11-05 14:21 | Outpatient (BNVA) | payer MEDICARE, SELFPAY | PROVIDERS: PCP Family Medicine; Visit Provider Podiatrist Foot & Ankle Surgery | DX: Z98.890 Other specified postprocedural states (principal); M21.611 Bunion of right foot; M21.612 Bunion of left foot | CPT/HCPCS: 73630; 99024 ==

== ENCOUNTER 2023-03-30 12:40 | Outpatient (CLI) | payer MEDICARE, SELFPAY ==
--- NOTE | 2023-03-30 13:11 | MM_ITS ---
WS: [id number] BILATERAL 3D TOMOSYNTHESIS DIGITAL SCREENING MAMMOGRAPHY WITH CAD CLINICAL INFORMATION: SCREENING HISTORY: Screening mammogram. No current complaints. COMPARISON: 2021 TECHNIQUE: Bilateral CC and MLO views. FINDINGS: Scattered fibroglandular densities bilaterally. No suspicious focal mass, asymmetry, calcifications, or architectural distortion. No evidence of malignancy. A few incidental punctate calcifications. IMPRESSION: MM/[place] [id number] BI-RADS: 2-Benign FOLLOW UP: 1 Year Follow-up Recommend return to annual screening mammography.
== END 2023-03-30 12:41 | disposition home or self-care (01) ==
LOC: RAD 12:42 → MOBLMAM 13:11
PROVIDERS: PCP Family Medicine; Visit Provider Family Medicine
DX: Z12.31 Encounter for screening mammogram for malignant neoplasm of breast (principal)
CPT/HCPCS: 77063; 77067

== ENCOUNTER → 2023-05-25 14:31 | Outpatient (BNVA) | payer MEDICARE, SELFPAY | PROVIDERS: PCP Family Medicine; Visit Provider Podiatrist Foot & Ankle Surgery | DX: M21.611 Bunion of right foot; M21.612 Bunion of left foot; M25.871 Other specified joint disorders, right ankle and foot | CPT/HCPCS: 73630; 99213 ==

== ENCOUNTER → 2023-06-23 11:40 | Outpatient (BNVA) | payer MEDICARE, SELFPAY | PROVIDERS: PCP Family Medicine; Visit Provider Nurse Practitioner Family | DX: D22.5 Melanocytic nevi of trunk (principal); L57.8 Other skin changes due to chronic exposure to nonionizing radiation; L81.4 Other melanin hyperpigmentation; L82.1 Other seborrheic keratosis; L82.0 Inflamed seborrheic keratosis | CPT/HCPCS: 17110; 99213 ==

== ENCOUNTER → 2024-06-23 09:45 | Outpatient (BNVA) | payer MEDICARE, SELFPAY | PROVIDERS: PCP Family Medicine; Visit Provider Nurse Practitioner Family | DX: D48.5 Neoplasm of uncertain behavior of skin (principal); L57.0 Actinic keratosis; D22.39 Melanocytic nevi of other parts of face; L57.8 Other skin changes due to chronic exposure to nonionizing radiation; L81.4 Other melanin hyperpigmentation; L82.1 Other seborrheic keratosis; L56.8 Other specified acute skin changes due to ultraviolet radiation | CPT/HCPCS: 11104; 17000; 99213 ==

== ENCOUNTER → 2024-07-03 09:44 | Outpatient (BNVA) | payer MEDICARE, SELFPAY | PROVIDERS: PCP Family Medicine; Visit Provider Nurse Practitioner Family | DX: Z48.02 Encounter for removal of sutures (principal); D22.4 Melanocytic nevi of scalp and neck | CPT/HCPCS: 99212 ==

== ENCOUNTER → 2024-07-26 13:54 | Outpatient (BNVA) | payer MEDICARE, SELFPAY | PROVIDERS: PCP Family Medicine; Visit Provider Dermatology | DX: D48.5 Neoplasm of uncertain behavior of skin (principal) | CPT/HCPCS: 11622; 13121 ==